=== PATIENT | male | born 1980 | race Caucasian/White ===

== ENCOUNTER 2023-11-11 07:37 | Outpatient (CLI) | payer OTHER, SELFPAY ==
--- NOTE | ~2023-11-11 | US_ITS ---
US right upper quadrant DATE: 11/11/2023 08:12 INDICATION: Chronic right-sided abdominal pain. Alcohol abuse, in remission. TECHNIQUE: Real-time imaging and Doppler analysis COMPARISON: 11/09/2014 Limited abdominal ultrasound examination FINDINGS: No hepatic surface nodularity is noted. No hepatic or pancreatic space occupying mass lesio n is detected. Normal hepatopedal portal venous flow direction. No gallstones or gallbladder wall thickening or abnormal pericholecystic fluid collection. Negative s onographic Mercedes's sign. The common bile duct measures 3 mm, normal. IMPRESSION: No significant abnormality Reviewed, dictated and finalized at Location [facility]. Reviewed, dictated and finalized at location B. IMPRESSION: No significant abnormality
== END 2023-11-11 07:38 ==
LOC: MICIMG 07:39
PROVIDERS: PCP Nurse Practitioner; Visit Provider Nurse Practitioner
DX: F10.11 Alcohol abuse, in remission (principal); R10.9 Unspecified abdominal pain; G89.29 Other chronic pain
CPT/HCPCS: 76705

== ENCOUNTER 2024-04-23 10:58 | Emergency (ER) | payer OTHER, SELFPAY ==
[2024-04-23 11:10] VITALS: BP 115/67; PULSE 115; RESP 18; TEMP 37.2; O2SAT 98
[2024-04-23 11:18] LABS: EDSTREPNEGPOS1 Negative (Negative)
--- NOTE | 2024-04-23 11:26 | ED.URI ---
HPI - URI/Sore Throat General Chief Complaint: Upper Respiratory Infection Stated Complaint: strep test Time Seen by Provider: 04/23/24 11:13 Source: patient and RN notes reviewed Mode of arrival: ambulatory Limitations: no limitations History of Present Illness HPI Narrative: Patient presents today with a 2 day history of sore throat, headache, productive cough, nasal congestion. Denies any fever shortness of breath. No known sick contacts. Currently rates his pain 5/10 and has been taking Sudafed and Tylenol with mild relief. Related Data Home Medications Medication Instructions Recorded Confirmed aripiprazole 2 mg tablet 2 mg PO DAILY 04/23/24 04/23/24 bupropion HCl 150 mg 24 hr tablet, 150 mg PO DAILY 04/23/24 04/23/24 extended release lamotrigine 100 mg tablet 100 mg PO DAILY 04/23/24 04/23/24 rosuvastatin 10 mg tablet 10 mg PO DAILY 04/23/24 04/23/24 sertraline 100 mg tablet 100 mg PO DAILY 04/23/24 04/23/24 Allergies Allergy/AdvReac Type Severity Reaction Status Date / Time Penicillins AdvReac Mild Hives Verified 04/23/24 11:21 Review of Systems Review of Systems: CONSTITUTIONAL: Denies body aches, fever, chills, or sweats. EYES: Denies visual changes, redness, or discharge. ENT: Denies rhinorrhea, or otalgia.+ congestion, sore throat CARDIOVASCULAR: Denies chest pain, palpitations, or edema. RESPIRATORY: Denies dyspnea.+ cough GASTROINTESTINAL: Denies abdominal pain, nausea, vomiting, or diarrhea. GENITOURINARY: Denies dysuria or hematuria. SKIN: Denies rash, itching, or wounds. MUSCULOSKELETAL: Denies back pain, joint pain, or myalgia. NEUROLOGIC: Denies numbness, tingling, or weakness.+ headache PSYCH: Denies depression or anxiety. [facility] Family History Family History Mother Family history of mental disorder Hypertension Father Hypertension Social History Social History Smoking status: Never smoker Second hand tobacco smoke exposure: No Comments At time of signature, I have reviewed and agree with nursing past medical, surgical, social and family history unless otherwise noted. Please see nursing chart for further information. There is no relevant family history pertinent to the presenting complaint Exam Narrative: GENERAL: Well-appearing, well-nourished, and in no acute distress. HEAD: Normocephalic, atraumatic. EYES: EOMI. No redness or drainage. Conjunctivae normal. ENT: Mucous membranes pink and moist. Nares congested with rhinorrhea. TMs normal bilaterally. Throat mildly erythematous without edema or exudate. Uvula midline. NECK: Normal AROM. Supple. No lymphadenopathy. CHEST: No respiratory distress. Clear to auscultation. HEART: Regular rate and rhythm. No murmur appreciated. EXTREMITIES: Normal range of motion. No edema. SKIN: Warm, dry, no rash. Capillary refill normal. Normal skin turgor. NEURO: No focal deficits. Alert and oriented x3. Gait steady. PSYCH: Normal affect. No signs of depression or anxiety. Course Course Level of Care: Express Care Visit Vital Signs Vital signs: Vital Signs Temperature 98.9 F 04/23/24 11:10 Pulse Rate 115 H 04/23/24 11:10 Respiratory Rate 18 04/23/24 11:10 Blood Pressure 115/67 04/23/24 11:10 Pulse Oximetry 98 04/23/24 11:10 Oxygen Delivery Room Air 04/23/24 11:10 Temperature 98.9 F 04/23/24 11:10 Pulse Rate 115 H 04/23/24 11:10 Respiratory Rate 18 04/23/24 11:10 Blood Pressure 115/67 04/23/24 11:10 Pulse Oximetry 98 04/23/24 11:10 Oxygen Delivery Room Air 04/23/24 11:10 Reviewed MDM - URI/Sore Throat MDM Narrative Medical decision making narrative: Rapid strep negative. Culture pending. Symptoms likely viral in etiology. Discussed [id number] medication use and duration of illness. No prescription medications indicated at this time. Anticipatory guidance given. Differential Diagnosis Differential diagnosis: Likely upper respiratory infection, viral infection, pharyngitis and other (Strep throat) Lab Data Attestation: I reviewed the patient's lab results. Labs: Lab Results 04/23/24 Range/Units 11:16 POC Grp A Strep Screen Negative (Negative) Critical Care Time Critical Care Time Critical Care Time: No Discharge Plan Discharge Clinical Impression: Upper respiratory infection Qualifiers: URI type: unspecified URI Qualified Code(s): J06.9 - Acute upper respiratory infection, unspecified Patient Disposition: Home, Self-Care Condition: Stable Instructions: Upper Respiratory Infection (DC) Additional Instructions: Your rapid strep swab was negative today at [facility]. You will be notified in a few days if the culture comes back positive for strep, and appropriate antibiotics will be called in for you at that time. Your symptoms are likely due to a viral illness, which is not treated with antibiotics. Viral symptoms can be present for up to 7-10 days. Take Tylenol or ibuprofen for fever or pain. Rest and stay hydrated. Follow up with your PCP in 7 days if symptoms are not improving. Go to the ER immediately if you have any difficulty breathing or swallowing. Prescriptions: No Action sertraline 100 mg tablet 100 mg PO DAILY lamotrigine 100 mg tablet 100 mg PO DAILY rosuvastatin 10 mg tablet 10 mg PO DAILY bupropion HCl 150 mg tablet extended release 24 hr 150 mg PO DAILY aripiprazole 2 mg tablet 2 mg PO DAILY Follow-up/Referrals: Afia,PARAS Weinstein [Primary Care Provider] - Time of Disposition: 11:29
== END 2024-04-23 11:29 | disposition home or self-care (01) ==
PROVIDERS: Emergency Provider Nurse Practitioner; PCP Nurse Practitioner
DX: J06.9 Acute upper respiratory infection, unspecified (principal); E78.00 Pure hypercholesterolemia, unspecified; F41.9 Anxiety disorder, unspecified; F32.A Depression, unspecified; Z86.16 Personal history of COVID-19
CPT/HCPCS: 87081; 87880; 99213; G0463

== ENCOUNTER 2024-10-24 21:10 | Observation (INO) | payer OTHER, SELFPAY ==
--- NOTE | ~2024-10-24 | CT_ITS ---
CLINICAL INDICATION: Right flank pain COMPARISON: None. TECHNIQUE: Multiple contiguous axial images of the abdomen and pelvis were performed without the admi nistration of intravenous contrast The dose-length product (DLP) was 244.82 mGy-cm. Automated exposure control and iterative reconstruction technique were employed. FINDINGS/OBSERVATIONS: Visualized lower thorax: The bilateral lung bases are clear. The heart is of normal size, without pericardial effusion. Small hiatal hernia is present. Liver: The liver demonstrates homogeneous attenuation and is not enlarged. Gallbladder and biliary system: The gallbladder is only minimally distended, and otherwise unremarkable. Pancreas: Limited evaluation of the pancreas secondary to the lack of intravenous contrast. Spleen: The spleen demonstrates homogeneous attenuation and is not enlarged. Kidneys: The bilateral kidneys are unremarkable, without hydronephrosis or renal calculi. Adrenal glands: Unremarkable. Gastrointestinal tract: Colonic diverticulosis without surrounding inflammatory change. Appendix: The retrocecal appendix is distended (up to 13 mm in caliber) with significant surrounding inflammato ry change. Findings consistent with acute appendicitis. Vasculature: Unremarkable. Lymph nodes: Limited evaluation without intravenous contrast Pelvic structures: The bladder is only minimally distended, and otherwise unremarkable. The prostate gland is not enlarged. Body wall and musculoskeletal: Small fat-containing umbilical hernia. No significant degenerative disease within the lower thoracic or lumbosacral spine. IMPRESSION: Acute retrocecal nonruptured appendicitis, as detailed above Reviewed, dictated and finalized at location A.
[2024-10-24 21:13] VITALS: BP 103/62; PULSE 68; RESP 18; O2SAT 99
--- OUTSIDE RECORDS SUMMARY | 2024-10-24 21:13 | XMS_ITS | Continuity of Care Document ---
Author Organization [facility] Address [address] [place] [address] [address] [place] [address] Phone Care Team Providers Care Chief Counsel Name Role Phone Tricia GARZA MD, Sherman Unavailable Unavailable Procedures Procedure Date OFFICE/OUTPATIENT VISIT, [facility] REMOVE EYELID LESION Advance Directives Directive Yes / No Effective Date File Name No Information Encounters Encounter Description Practice Location Reason(s) For Visit Diagnoses Date Provider Providers Copied on Encounter OFFICE/OUTPA TIENT VISIT, [facility], [address], [place], [place], [id number], tel:[phone] [facility] No Information 3 Tricia Whitaker. [address], [address], [place], [place], [address] , [place]. tel:[phone] Referring Provider: Sherman Clarke MD P, [address], [place], [address] . tel:[phone] Family History Family Member Type Diagnosis Age At Onset No Information Payers Payer name Insurance type Covered alliance party ID Authoriza tion(s) No Information Social History Type Description Quantity Date Captured Comments Sex Male Smoking Status No Information Chief Complaint And Reason For Visit No Information Reason For Referral Reason For Referral No Information History Of Present Illness Encounter Date Complaint History Of Prese nt Illness No Information Functional Status Date Functional Assessmen t No Information Instructions Date Instruction Additional Infor mation No Information Assessments Type Assessment Date No Information Patient Care Teams Name Effective Dates (start - stop) Status Members No Information
[2024-10-24 21:38] LABS: Basophils Percent Auto 0.2 % (0.2-1.2); Eosinophils Absolute Auto 0.1 K/mm3 (0-0.3); Eosinophils Percent Auto 0.9 % (0-4.4); Hematocrit 47.3 % (42.0-52.0); Hemoglobin 15.4 g/dL (14.0-18.0); Immature Granulocyte Absolute 0.05 K/mm3 (0.00-0.031); Immature Granulocyte Percent A 0.4 % (0-0.5); Lymphocytes Absolute Auto 1.76 K/mm3 (0.9-3.2); Lymphocytes Percent Auto 13.6 % (18.3-44.2); Mean Corpuscular HGB Conc 32.6 g/dl (32-36); Mean Corpuscular Hemoglobin 28.4 pg (26-34); Mean Corpuscular Volume 87.3 fl (80-100); Mean Platelet Volume 10.5 fl (7.4-10.4); Monocytes Absolute Auto 0.7 K/mm3 (0.1-0.6); Monocytes Percent Auto 5.7 % (2.6-8.5); Neutrophils Absolute Auto 10.2 K/mm3 (1.3-6.7); Neutrophils Percent Auto 79.2 % (45.5-73.1); Platelet Count Result 271 k/mm3 (150-375); Red Blood Count 5.42 M/mm3 (4.6-6.20); Red Cell Distribution Width 13.1 % (11.5-14.5); White Blood Count 12.9 K/mm3 (4.5-10.0)
[2024-10-24 22:05] LABS: Alanine Aminotransferase 30 U/L (6-50); Albumin Level 5.3 g/dL (3.5-5.1); Alkaline Phosphatase 59 U/L (38-126); Anion Gap 10 mmol/L (4-12); Aspartate Amino Transferase 30 U/L (17-59); Bilirubin,Total 0.7 mg/dL (0.2-1.3); Blood Urea Nitrogen 12 mg/dL (9-20); Calcium 9.6 mg/dL (8.4-10.2); Carbon Dioxide 31 mmol/L (22-30); Chloride 99 mmol/L (98-107); Estimated CRCL calculation 107 ml/min; Estimated Glomerular Filt Rate > 60; Glucose 125 mg/dL (65-110); Potassium 5.1 mmol/L (3.4-5.0); Sodium 140 mmol/L (137-145)
--- OUTSIDE RECORDS SUMMARY | 2024-10-24 22:18 | XMS_ITS | Clinical Summary ---
Author Organization [facility] Address [address] [place] [address] Care Team Providers Care Carpet Measurer Name Role Phone Yamel Oreilly NP Primary Care Provider [phone] Allergies Active Allergy Reactions Criticality Noted Date Comments Penicillins Unknown 01/19/2023 As a child Medications buPROPion XL (WELLBUTRIN XL) 150 MG 24 hr tablet Take 1 tablet (150 mg total) by mouth every morning. 4 Active busPIRone (BUSPAR) 7.5 MG tablet Take 1 tablet (7.5 mg total) by mouth daily. 3 Active hydrOXYzine (ATARAX) 25 MG tablet Take 1 tablet (25 mg total) by mouth as needed. Active sertraline (ZOLOFT) 100 MG tablet Take 1 tablet (100 mg total) by mouth daily. Active lamoTRIgine (LAMICTAL) 100 MG tablet Take 1 tablet (100 mg total) by mouth daily. 4 Active rosuvastatin (CRESTOR) 10 MG tabletIndications:M ixed hyperlipidemia Take 1 tablet (10 mg total) by mouth nightly at bedtime. 90 tablet 1 4 Active Active Problems Problem Noted Date Diagnosed Date Former cigar smoker 01/29/2024 Overview (01/29/2024): He is pleased to tell me that he quit smoking cigarettes. He is currently using a nicotine patch. Other hyperlipidemia 01/29/2024 Assessment & Plan (01/29/2024 9:03 AM CDT): Will recheck lipid panel. Encourage following a healthy well balance diet and staying active. Vitamin D deficiency 01/29/2024 Assessment & Plan (01/29/2024 9:05 AM CDT): Will recheck Vitamin D level. Is not on supplementation anymore. Alcohol abuse, in remission 11/02/2023 Overview (01/29/2024): Continues to remain alcohol free. Bipolar disorder, current ep isode mixed, mild ([facility]) 11/02/2023 Overview (01/29/2024): Follows with psychiatry for med management of his bipolar disorder and involved in therapy. Is doing very well. Denies any SI/HI. Assessment & Plan (01/29/2024 8:59 AM CDT): Continue to follow with psychiatry Resolved Problems Problem Noted Date Diagnosed Date Resolved Date Chronic right-sided low back pain without sciatica 11/02/2023 01/29/2024 Chronic right flank pain 11/02/202302/2024 Immunizations Immunization Administration Dates Next Due Influenza Adult (Generic) 03/14/2023,,04/26/2021,2018,04/14/2018,07/11/2017 PFIZER COVID-19 (ORIGINAL FORMULATION, PURPLE CAP) mRNA, LNP-S, PF, 30 MCG/0.3 ML DOSE 04/26/2021,09/13/2020,08/23/2020 Tdap (Adacel) 01/29/2024 Family History Medical History Relation Comments Diabetes Father Alcohol Abuse Maternal Uncle I m not going to list everyone. Half my family has some form of substanct abuse and depression. Hyperlipidemia Mother Relation Status Comments Father Maternal Uncle Mother Social History Tobacco Use Types Packs/Day Years Used Date Smoking Tobacco: Former Cigarettes Passive Smoke Exposure: Never Smokeless Tobacco: Never Comments:/Nicotine patch x 0 12/21/23 Alcohol Use Standard Drinks/Week Comments Not Currently 0 (1 standard drink = 0.6 oz pure alcohol) Hx alcohol abuse, clean for 6 weeks now, Would drink 12 pack beer daily x 3 years and 6 pack daily for 17 years PHQ-2 Answer Date Recorded Patient Health Questionnaire-2 Score 1 01/29/2024 Sex and Gender Information Value Date Recorded Sex Assigned at Not on file Legal Sex Male 9:11 AM CDT Gender Identity Not on file Sexual Orientation Not on file Last Filed Vital Signs Vital Sign Reading Time Taken Comments Blood Pressure 116/70 01/29/2024 8:16 AM CDT Pulse 73 01/29/2024 8:16 AM CDT Temperature 36.7 C (98.1 F) 01/29/2024 8:16 AM CDT Respiratory Rate 22 01/29/2024 8:16 AM CDT Oxygen Saturation 98% 01/29/2024 8:16 AM CDT Inhaled Oxygen Concentration - - Weight 76.2 kg (168 lb) 01/29/2024 8:16 AM CDT Height 180.3 cm (5' 11 ) 01/29/2024 8:16 AM CDT Body Mass Index 23.43 01/29/2024 8:16 AM CDT Plan of Treatment Upcoming Encounters Date Type Department Care Team (Late st Contact Info) Description 01/30/2025 8:20 AM CDT Office Visit [facility] - [place] [address] [place] [id number] Yamel Oreilly, VIDEO CONFERENCE SPECIALIST [address] [place] [address] Health Maintenance Due Date Last Done Comments Hepatitis B Vaccines (1 of 3 - 19+ 3-dose series) 10/03/1999 COVID-19 Vaccine (2023- season) 2024 03/14/2023, 03/15/2022, 04/26/2021, Additional history exists PHQ-2 (Physician [place]) 06/22/2024 01/29/2024 Annual Physical 01/28/2025 01/29/2024, 01/19/2023 DTaP, Tdap and Td Vaccines (2 - Td or Tdap) 01/28/2034 01/29/2024 Hepatitis C Completed 01/19/2023 HPV Vaccines Aged Out No longer eligi ble based on patient's age to complete this topic Meningococcal B Vaccine Aged Out No l onger eligible based on patient's age to complete this topic Meningococcal Vaccine Aged Out No aury minda eligible based on patient's age to complete this topic Pneumococcal Vaccine: Pediatrics (0 to 5 Years) and At-Risk Patients (6 to 49 Years) Aged Out No longer eligible based on patient's age to complete this topic RSV Immunizations Under 20 Months Aged Out No longer eligible based on patient's age to complete this topic Procedures Procedure Name Priority Date/Time Associated Diagnosis Comments HEPATITIS C ANTIBODY Routine 01/19/2023 10:05 AM CDT Need for hepatitis C screening test from Last 3 Months or Most Recently Relevant to Health Maintenance Results * HEPATITIS C ANTIBODY (01/19/2023 10:05 AM CDT) HEPATITIS C AB NON-REACTI VE NON-REACT SREEDHAR 01/19/2023 6:43 PM CDT [facility] Comment: ANTIBODIES TO HCV NOT DETECTED. DOES NOT EXCLUDE THE POSSIBILITY OF EXPOSURE TO HCV. 01/19/2023 10:0 5 AM CDT us Yamel Oreilly NP LABORATORY Final Res ult [facility] [address] [place] [address], [phone] from Last 3 Months or Most Recently Relevant to Health Maintenance Insurance [employer] Care Teams Carpet Measurer Relationship Specialty Start Date End Date Yamel Oreilly NP [address] [place] [address] PCP - General NURSE PRACTITIONER 12/08/22
--- OUTSIDE RECORDS SUMMARY | 2024-10-24 22:18 | XMS_ITS | Encounter Summary ---
Author Organization [facility] Address [address] [place] [address] Care Team Providers Care Pickle Cutter Name Role Phone Yamel Oreilly NP Primary Care Provider [phone] Encounter Details Date Type Department Care Team (Late Contact Info) Description 02/09/2024 Mizzen+Maint Message Enc [facility] Family Medicine [facility] [address] [phone] Yamel Oreilly NP [address] [address] follow up on [place] Social History Tobacco Use Types Packs/Day Years [...] on file Sexual Orientation Not on file documented as of this encounter Plan of Treatment Upcoming Encounters Date Type Department Care Team (Late Contact Info) Description 01/30/2025 8:20 AM CDT Office Visit [facility] [address] [address] Yamel Oreilly NP [address] [place] [address] documented as of this encounter Visit Diagnoses Not on filedocumented in this encounter Additional Health Concerns Assessment Noted Time PHQ-9 Depression Total Score: 19 023 9:09 AM CDT documented as of this encounter Care Teams Pickle Cutter Relationship Specialty Start Date End Date Yamel Oreilly NP [address] [place] [address] PCP - General NURSE PRACTITIONER 12/08/22 documented as of this encounter
--- OUTSIDE RECORDS SUMMARY | 2024-10-24 22:18 | XMS_ITS | Encounter Summary ---
Author Organization [facility] Address [address] [place] [address] Care Team Providers Care Smoke Control Supervisor Name Role Phone Yamel Oreilly NP Primary Care Provider [phone] Encounter Details Date Type Department Care Team (Late Contact Info) Description 11/11/2023 [employer]art Message Enc [facility] Family Medicine [facility] [address] [address] Yamel Oreilly NP [address] [address] Abdominal ultrasound results Social History Tobacco Use Types Packs/Day Years Used Date Smoking Tobacco: Every Day Passive Smoke Exposure: Never Smokeless Tobacco: Never Alcohol Use Standard Drinks/Week Comments Not Currently 0 (1 standard drink = 0.6 oz pure alcohol) Hx alcohol abuse, clean for 6 weeks now, Would drink 12 pack beer daily x 3 years and 6 pack daily for 17 years PHQ-2 Answer Date Recorded Patient Health Questionnaire-2 Score 6 01/19/2023 Sex and Gender Information Value Date Recorded Sex Assigned at Not on file Legal Sex Male 9:11 AM CDT Gender Identity Not on file Sexual Orientation Not on file documented as of this encounter Plan of Treatment Upcoming Encounters Date Type Department Care Team (Late Contact Info) Description 01/30/2025 8:20 AM CDT Office Visit [facility] [address] [phone] Yamel Oreilly NP [address] [place] [address] documented as of this encounter Visit Diagnoses Not on filedocumented in this encounter Additional Health Concerns Assessment Noted Time PHQ-9 Depression Total Score: 19 023 9:09 AM CDT documented as of this encounter Care Teams Smoke Control Supervisor Relationship Specialty Start Date End Date Yamel Oreilly NP [address] [place] [address] PCP - General NURSE PRACTITIONER 12/08/22 documented as of this encounter
--- OUTSIDE RECORDS SUMMARY | 2024-10-24 22:18 | XMS_ITS | Continuity of Care Document ---
Author Organization [facility] Address [address] [place] [address] [address] [place] [address] Phone Care Team Providers Care Lead Military Analyst Name Role Phone Tricia GARZA MD, Sherman Unavailable Unavailable Procedures Procedure Date OFFICE/OUTPATIENT VISIT, [facility] REMOVE EYELID LESION Advance Directives Directive Yes / No Effective Date File Name No Information Encounters Encounter Description Practice Location Reason(s) For Visit Diagnoses Date Provider Providers Copied on Encounter OFFICE/OUTPA TIENT VISIT, [facility], [address], [place], [place], [address], tel:[phone] [facility] No Information 3 Tricia Whitaker. [address] [facility], [place], [place], [address] , [place]. tel:[phone] Referring Provider: Sherman Clarke MD P, [address] [facility] [address] [facility] [facility] [address], [place], [address] . tel:[phone] Family History Family Member Type Diagnosis Age At Onset No Information Payers Payer name Insurance type Covered democrat ID Authoriza tion(s) No Information Social History [...]
--- NOTE | 2024-10-24 22:34 | ED_ITS ---
HPI - Abdominal Pain General Chief Complaint: Abdominal Pain <ZECHARIAH Kunz Last Filed: 10/25/24 01:12> Stated Complaint: a constipation blockage <ZECHARIAH Kunz Last Filed: 10/25/24 01:12> Time Seen by Provider: 10/24/24 22:01 <Alissa Sierra PA-C - Last Filed: 10/25/24 01:12> History of Present Illness HPI narrative: 44-year-old male with history of MDD, hyperlipidemia presents to the emergency department for right flank pain and diffuse abdominal pain for the past day. Patient states he thought he was constipated so took Gas-X, MiraLax and milk of magnesia without improvement in symptoms. He states the pain continued to progress so he came to the ED for further evaluation. He cannot recall the last time he urinated but notes he urinated last night and did not have any dysuria or hematuria. He endorses nausea, no vomiting. Denies fevers, history of kidney stones. His last bowel movement was earlier today and small in caliber. States he is passing little flatulence. No prior abdominal surgeries. <Alissa Sierra PA-C - Last Filed: 10/25/24 01:12> Related Data Home Medications: Home Medications ?Medication ?Instructions ?Recorded ?Confirmed ?Last Taken ?Type bupropion HCl 150 mg 24 hr tablet, 150 mg PO DAILY 04/23/24 10/25/24 Unknown History extended release lamotrigine 100 mg tablet 100 mg PO DAILY 04/23/24 10/25/24 Unknown History rosuvastatin 10 mg tablet 10 mg PO DAILY 04/23/24 10/25/24 Unknown History sertraline 100 mg tablet 150 mg PO DAILY 04/23/24 10/25/24 Unknown History hydroxyzine HCl 25 mg tablet 25 mg PO Q8H PRN anxiety 10/25/24 10/25/24 Unknown History melatonin 10 mg tablet 10 mg PO HS PRN sleep 10/25/24 10/25/24 Unknown History <Alissa Sierra PA-C - Last Filed: 10/25/24 01:12> Allergies/Adverse Reactions: Allergies Allergy/AdvReac Type Severity Reaction Status Date / Time Penicillins AdvReac Mild Hives Verified 10/24/24 21:12 <Alissa Sierra PA-C - Last Filed: 10/25/24 01:12> Review of Systems 2 Review of Systems: All systems reviewed & are unremarkable except as noted in HPI and below <Alissa Sierra PA-C - Last Filed: 10/25/24 01:12> PMFSH Family History Family History: Family History Mother Family history of mental disorder Hypertension Father Hypertension <Alissa Sierra PA-C - Last Filed: 10/25/24 01:12> Social History Social History: Social History Smoking status: Former smoker Second hand tobacco smoke exposure: No Alcohol intake: never Substance use: never Do You Feel Safe in your Home?: Yes Lack of Transportation: No Lack of Food: Never True Current Housing: I Have Housing Concerned About Future Housing: No Difficulty Paying Gas/Electric Bills: No Difficulty Paying for Meds: No Currently Unemployed: No Education: Bachelor's Degree Difficulty w/ Childcare or Family Care: No Spiritual care concerns: No <Alissa Sierra PA-C - Last Filed: 10/25/24 01:12> Exam 2 Narrative: GENERAL: Appears uncomfortable, otherwise NAD HEAD: Normocephalic, atraumatic. EYES:EOMI. ENT: Nares clear, no rhinorrhea or epistaxis. Mucous membranes moist. NECK: Supple. CHEST: Clear to auscultation. No respiratory distress. HEART: Regular rate and rhythm. No murmur heard. Normal peripheral pulses. ABDOMEN: Normoactive bowel sounds. Abdomen soft diffuse tenderness. No rebound, guarding or rigidity. Right CVA tenderness EXTREMITIES: Normal range of motion. No edema. SKIN: Warm, dry, no rash. NEURO: No focal deficits. Alert and oriented x3 <Alissa Sierra PA-C - Last Filed: 10/25/24 01:12> Course [employer]/PA Physician Supervision I agree with midlevel documentation; I performed the medical decision making component of this evaluation. <Jada Soriano MD - Last Filed: 10/25/24 02:58> Vital Signs Vital signs: Vital Signs Pulse Rate 68 10/24/24 21:13 Respiratory Rate 18 10/24/24 21:13 Blood Pressure 103/62 10/24/24 21:13 Pulse Oximetry 99 10/24/24 21:13 Temperature 98.1 F 10/25/24 02:36 Pulse Rate 81 10/25/24 02:36 Respiratory Rate 20 10/25/24 02:36 Blood Pressure 118/63 10/25/24 02:36 Pulse Oximetry 95 10/25/24 02:36 Oxygen Delivery Room Air 10/25/24 02:43 <Alissa Sierra PA-C - Last Filed: 10/25/24 01:12> Vital Signs Pulse Rate 68 10/24/24 21:13 Respiratory Rate 18 10/24/24 21:13 Blood Pressure 103/62 10/24/24 21:13 Pulse Oximetry 99 10/24/24 21:13 Temperature 98.1 F 10/25/24 02:36 Pulse Rate 81 10/25/24 02:36 Respiratory Rate 20 10/25/24 02:36 Blood Pressure 118/63 10/25/24 02:36 Pulse Oximetry 95 10/25/24 02:36 Oxygen Delivery Room Air 10/25/24 02:43 <Jada Soriano MD - Last Filed: 10/25/24 02:58> MDM - Abdominal Pain MDM Narrative Medical decision making narrative: 44-year-old male presents emergency department for diffuse abdominal pain and right flank pain for 1 day. Reporting associated nausea. Vitals stable. Patient is afebrile and nontoxic appearing. Exam is significant for the above. CBC with leukocytosis of 12.9. Chemistries with mild hyperkalemia 5.1, likely dehydration. Fluids provided. Renal function normal. Lipase within normal limits. CT abdomen pelvis shows acute retrocecal nonruptured appendicitis. Patient family at bedside updated on results. Patient received IV fluids, Zofran, morphine and Pepcid with improvement. Patient was able to urinate in the ED after IV fluids. Discussed with Dr. Kennedy who agrees to admission, advises admit under his service. Agrees to Rocephin and Flagyl given PCN allergy. <Alissa Sierra PA-C - Last Filed: 10/25/24 01:12> Lab Data Result diagrams: 10/24/24 21:30 10/24/24 21:30 <Alissa Sierra PA-C - Last Filed: 10/25/24 01:12> Labs: Lab Results 10/24/24 10/25/24 Range/Units 21:30 00:54 WBC 12.9 H (4.5-10.0) K/mm3 RBC 5.42 (4.6-6.20) M/mm3 Hgb 15.4 (14.0-18.0) g/dL Hct 47.3 (42.0-52.0) % MCV 87.3 (80-100) fl MCH 28.4 (26-34) pg MCHC 32.6 (32-36) g/dl RDW 13.1 (11.5-14.5) % Plt Count 271 (150-375) k/mm3 MPV 10.5 H (7.4-10.4) fl Immature Gran % (Auto) 0.4 (0-0.5) % Neut % (Auto) 79.2 H (45.5-73.1) % Lymph % (Auto) 13.6 L (18.3-44.2) % [place] % (Auto) 5.7 (2.6-8.5) % Eos % (Auto) 0.9 (0-4.4) % Baso % (Auto) 0.2 (0.2-1.2) % Lymph # (Auto) 1.76 (0.9-3.2) K/mm3 [place] # (Auto) 0.7 H (0.1-0.6) K/mm3 Eos # (Auto) 0.1 (0-0.3) K/mm3 Baso # (Auto) 0.0 (0.0-0.1) K/mm3 Abs Immat Gran (auto) 0.05 H (0.00-0.031) K/mm3 Absolute Neuts (auto) 10.2 H (1.3-6.7) K/mm3 Absolute Nucleated RBC 0.000 (0.0-0.012) K/mm3 Nucleated RBC % 0.0 (0.0-0.2) % Sodium 140 (137-145) mmol/L Potassium 5.1 H (3.4-5.0) mmol/L Chloride 99 (98-107) mmol/L Carbon Dioxide 31 H (22-30) mmol/L Anion Gap 10 (4-12) mmol/L BUN 12 (9-20) mg/dL Creatinine 0.84 (0.7-1.3) mg/dL Estim Creat Clear Calc 107 ml/min Estimated GFR > 60 (59 - ) Glucose 125 H (65-110) mg/dL Calcium 9.6 (8.4-10.2) mg/dL Total Bilirubin 0.7 (0.2-1.3) mg/dL AST 30 (17-59) U/L ALT 30 (6-50) U/L Alkaline Phosphatase 59 (38-126) U/L Total Protein 9.0 H (6.3-8.2) g/dL Albumin 5.3 H (3.5-5.1) g/dL Lipase 73 (23-300) U/L Urine Color Yellow (Yellow) Urine Appearance Clear (Clear) Urine pH >=9.0 H (5.0-9.0) Ur Specific [place] 1.020 (1.001-1.035) Urine Protein 1+ H (Negative) mg/dL Urine Glucose (UA) Negative (Negative) mg/dL Urine Ketones 1+ H (Negative) mg/dL Ur Blood (Man) Negative (Negative) Urine Nitrate Negative (Negative) Urine Bilirubin Negative (Negative) Urine Urobilinogen 0.2 (<2.0) mg/dL Leukocyte Esterase Rfl Negative (Negative) FRANCES/UL Urine RBC 0-2 (0-2) /hpf Urine WBC 0-5 (0-3) /hpf Ur Squamous Epith Cells None seen (Few) /hpf Urine Bacteria None seen /hpf Urine Casts 0-2 <Alissa Sierra PA-C - Last Filed: 10/25/24 01:12> Lab Results 10/24/24 10/25/24 Range/Units 21:30 00:54 WBC 12.9 H (4.5-10.0) K/mm3 RBC 5.42 (4.6-6.20) M/mm3 Hgb 15.4 (14.0-18.0) g/dL Hct 47.3 (42.0-52.0) % MCV 87.3 (80-100) fl MCH 28.4 (26-34) pg MCHC 32.6 (32-36) g/dl RDW 13.1 (11.5-14.5) % Plt Count 271 (150-375) k/mm3 MPV 10.5 H (7.4-10.4) fl Immature Gran % (Auto) 0.4 (0-0.5) % Neut % (Auto) 79.2 H (45.5-73.1) % Lymph % (Auto) 13.6 L (18.3-44.2) % [place] % (Auto) 5.7 (2.6-8.5) % Eos % (Auto) 0.9 (0-4.4) % Baso % (Auto) 0.2 (0.2-1.2) % Lymph # (Auto) 1.76 (0.9-3.2) K/mm3 [place] # (Auto) 0.7 H (0.1-0.6) K/mm3 Eos # (Auto) 0.1 (0-0.3) K/mm3 Baso # (Auto) 0.0 (0.0-0.1) K/mm3 Abs Immat Gran (auto) 0.05 H (0.00-0.031) K/mm3 Absolute Neuts (auto) 10.2 H (1.3-6.7) K/mm3 Absolute Nucleated RBC 0.000 (0.0-0.012) K/mm3 Nucleated RBC % 0.0 (0.0-0.2) % Sodium 140 (137-145) mmol/L Potassium 5.1 H (3.4-5.0) mmol/L Chloride 99 (98-107) mmol/L Carbon Dioxide 31 H (22-30) mmol/L Anion Gap 10 (4-12) mmol/L BUN 12 (9-20) mg/dL Creatinine 0.84 (0.7-1.3) mg/dL Estim Creat Clear Calc 107 ml/min Estimated GFR > 60 (59 - ) Glucose 125 H (65-110) mg/dL Calcium 9.6 (8.4-10.2) mg/dL Total Bilirubin 0.7 (0.2-1.3) mg/dL AST 30 (17-59) U/L ALT 30 (6-50) U/L Alkaline Phosphatase 59 (38-126) U/L Total Protein 9.0 H (6.3-8.2) g/dL Albumin 5.3 H (3.5-5.1) g/dL Lipase 73 (23-300) U/L Urine Color Yellow (Yellow) Urine Appearance Clear (Clear) Urine pH >=9.0 H (5.0-9.0) Ur Specific [place] 1.020 (1.001-1.035) Urine Protein 1+ H (Negative) mg/dL Urine Glucose (UA) Negative (Negative) mg/dL Urine Ketones 1+ H (Negative) mg/dL Ur Blood (Man) Negative (Negative) Urine Nitrate Negative (Negative) Urine Bilirubin Negative (Negative) Urine Urobilinogen 0.2 (<2.0) mg/dL Leukocyte Esterase Rfl Negative (Negative) FRANCES/UL Urine RBC 0-2 (0-2) /hpf Urine WBC 0-5 (0-3) /hpf Ur Squamous Epith Cells None seen (Few) /hpf Urine Bacteria None seen /hpf Urine Casts 0-2 <Jada Soriano MD - Last Filed: 10/25/24 02:58> Imaging Data Radiologist's impression: ITS Impressions Abdomen/Pelvis CT 10/24/24 23:53 IMPRESSION: Acute retrocecal nonruptured appendicitis, as detailed above <ZECHARIAH Kunz Last Filed: 10/25/24 01:12> ITS Impressions Abdomen/Pelvis CT 10/24/24 23:53 IMPRESSION: Acute retrocecal nonruptured appendicitis, as detailed above <Jada Soriano MD - Last Filed: 10/25/24 02:58> Discharge Plan Discharge Clinical Impression: Acute appendicitis Qualifiers: Acute appendicitis type: with generalized peritonitis Appendicitis gangrene presence: without gangrene Appendicitis perforation presence: without perforation Appendicitis abscess presence: without abscess Qualified Code(s): K 35.200 - Acute appendicitis with generalized peritonitis, without perforation or abscess <ZECHARIAH Kunz Last Filed: 10/25/24 01:12> Patient Disposition: Still a Patient <ZECHARIAH Kunz Last Filed: 10/25/24 01:12> Condition: Stable <ZECHARIAH Kunz Last Filed: 10/25/24 01:12>
[2024-10-24 22:39] VITALS: TEMP 36.6
[2024-10-24 22:49] LABS: Lipase 73 U/L (23-300)
[2024-10-25] VITALS (14 sets, daily range): BP systolic 97–118; BP diastolic 52–72; PULSE 81–101; RESP 12–20; TEMP 36.2–37.5; O2SAT 91–98; BMI 23.3
--- NOTE | 2024-10-25 00:31 | PC.NURSE ---
pt can not provide a urine at this time.
[2024-10-25] MEDS: SODIUM CHLORIDE 0.9% IV 1,000 ML 999 ML IV CONT (00:39)
[2024-10-25] MEDS: ONDANSETRON INJ 4 MG/2 ML VIAL IV PUSH ×3 (00:40→06:43)
[2024-10-25] MEDS: MORPHINE SULFATE (*CRX) 4 MG/ML INJ IV PUSH ×5 (00:40→22:25)
[2024-10-25] MEDS: FAMOTIDINE 20 MG/2 ML VIAL IV PUSH (00:40)
[2024-10-25] MEDS: metroNIDAZOLE 500 MG/ISO 100ML 500 MG/100 ML BAG 100 MG IVPB ×3 (01:00→15:02)
[2024-10-25 01:43] LABS: Add Urine Microscopic? YES; Appearance Urine Clear (Clear); Bacteria Urine None Seen /hpf; Bilirubin Urine Negative (Negative); Blood Urine Negative (Negative); Color Urine Yellow (Yellow); Glucose Urine UA Negative (Negative); Ketones Urine 1+ mg/dL (Negative); Leukocyte Esterase Ur Negative LEU/UL (Negative); Nitrate Urine Negative (Negative); Non Pathogenic Casts 0-2; Protein Urine 1+ mg/dL (Negative); RBC Urine 0-2 /hpf (0-2); Squamous Epithelial Cell Urine None Seen /hpf (Few); Urobilinogen Urine 0.2 mg/dL (<2.0); WBC Urine 0-5 /hpf (0-3); pH Urine >=9.0 (5.0-9.0)
[2024-10-25] MEDS: SODIUM CHLORIDE 0.9% IV 1,000 ML 125 ML IV CONT ×2 (01:57→11:10)
--- NOTE | 2024-10-25 02:25 | ADMGEN ---
This patient, Jose Rafael Canela, was admitted to Medical Room 243-. Patient/family oriented to hospital policies and general routines including ID bracelet, bed and alarms, visiting hours, pain management, procedures, bathroom and other care routines, personal items, smoking policy, room service/diet, and visiting hours. Information on how to activate the Rapid Response Team has been discussed. Patient/Family are encouraged to report perceived risks to care and to ask questions if they do not understand what they are told or what they should do.
--- NOTE | 2024-10-25 12:14 | PM.IMHP ---
H&P: [facility] History of Present Illness Date/Time: 10/25/24 12:14 Chief Complaint: Right lower quadrant pain Narrative: This is a 44-year-old man with PMH of depression, hyperlipidemia, who added to the ED last night with complaints of right lower quadrant abdominal pain x 2 days. He initially noticed bloating and generalized abdominal discomfort Thursday evening. He initially thought he was constipated and attempted taking multiple [id number]-bapiatu laxatives. He had multiple bowel movements without relief. By the following day, he developed localize pain to the right lower quadrant and right flank. He also reports some lower back pain bilaterally. By last night, he developed generalized malaise, nausea, and dry heaving. Therefore, he came into the ED for evaluation. [place] [address] scan of the abdomen and pelvis demonstrated acute retrocecal nonruptured appendicitis. He was admitted and started on ceftriaxone and metronidazole IV. He is now seen on the medical floor. 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 Family History Family History Mother Family history of mental disorder Hypertension Father Hypertension Social History Social History Smoking status: Former smoker Second hand tobacco smoke exposure: No Alcohol intake: never Substance use: never Do You Feel Safe in your Home?: Yes Lack of Transportation: No Lack of Food: Never True Current Housing: I Have Housing Concerned About Future Housing: No Difficulty Paying Gas/Electric Bills: No Difficulty Paying for Meds: No Currently Unemployed: No Education: Bachelor's Degree Difficulty w/ Childcare or Family Care: No Spiritual care concerns: No Meds Home Medications and Allergies Home Medications ?Medication ?Instructions ?Recorded ?Confirmed ?Type bupropion HCl 150 mg 24 hr tablet, 150 mg PO DAILY 04/23/24 10/25/24 History extended release lamotrigine 100 mg tablet 100 mg PO DAILY 04/23/24 10/25/24 History rosuvastatin 10 mg tablet 10 mg PO DAILY 04/23/24 10/25/24 History sertraline 100 mg tablet 150 mg PO DAILY 04/23/24 10/25/24 History hydroxyzine HCl 25 mg tablet 25 mg PO Q8H PRN anxiety 10/25/24 10/25/24 History melatonin 10 mg tablet 10 mg PO HS PRN sleep 10/25/24 10/25/24 History Allergies Allergy/AdvReac Type Severity Reaction Status Date / Time Penicillins AdvReac Mild Hives Verified 10/24/24 21:12 Vital Signs Vital Signs - 24 hr 10/24/24 21:13 10/24/24 22:39 10/25/24 00:56 Temperature 97.8 F 98.1 F Pulse Rate 68 Respiratory Rate 18 Blood Pressure 103/62 Pulse Oximetry 99 Oxygen Delivery 10/25/24 02:36 10/25/24 02:43 10/25/24 05:59 Temperature 98.1 F 98.3 F Pulse Rate 81 87 Respiratory Rate 20 20 Blood Pressure 118/63 107/52 L Pulse Oximetry 95 94 Oxygen Delivery Room Air 10/25/24 08:00 Temperature Pulse Rate Respiratory Rate Blood Pressure Pulse Oximetry Oxygen Delivery Room Air Exam Const: General: comfortable and no acute distress Nutritional Appearance: average body habitus Orientation/consciousness: patient oriented x3 HENMT: Head: normocephalic and atraumatic Ears: hearing grossly normal bilaterally Mouth: Yes moist mucous membranes Eyes: General: appearance normal, both eyes and all related structures Pupils: Equal, round and reactive pupils present Neck: Neck: normal visual inspection and full ROM Resp: Effort & Inspection: no respiratory distress Auscultation: clear to auscultation bilaterally Cardio: Rate: regular rate Rhythm: regular rhythm Peripheral pulses: Peripheral pulses 2+ throughout GI: Inspection: non-distended and no scars GI Palp: Yes Soft to palpation, Yes Tenderness to palpation present (GI) (RLQ), No Guarding due to palpation present (GI), Yes No hepatosplenomegaly present, No Hernia present and No Rebound tenderness present Percussion: Yes normal to percussion Auscultation: normal bowel sounds Rectal Exam: deferred Skin: General skin exam: normal color Neuro: General: moves all extremities and no focal motor deficits Speech: normal speech Motor exam (neuro): 5/5 motor strength present throughout Extrem: General: normal to inspection and no edema Psych: Mental Status: mental status grossly normal Attitude: cooperative Insight: Good insight present (Psych) Judgement: Good judgement present (Psych) H&P: Results Labs Labs: Short CBC 10/24/24 Range/Units 21:30 WBC 12.9 H (4.5-10.0) K/mm3 Hgb 15.4 (14.0-18.0) g/dL Hct 47.3 (42.0-52.0) % Plt Count 271 (150-375) k/mm3 BMP 10/24/24 21:30 Sodium 140 Potassium 5.1 H Chloride 99 Carbon Dioxide 31 H BUN 12 Creatinine 0.84 Glucose 125 H Calcium 9.6 Liver Function 10/24/24 Range/Units 21:30 Total Bilirubin 0.7 (0.2-1.3) mg/dL AST 30 (17-59) U/L ALT 30 (6-50) U/L Alkaline Phosphatase 59 (38-126) U/L Albumin 5.3 H (3.5-5.1) g/dL Urine 10/25/24 Range/Units 00:54 Urine Color Yellow (Yellow) Urine Appearance Clear (Clear) Urine pH >=9.0 H (5.0-9.0) Ur Specific [place] 1.020 (1.001-1.035) Urine Protein 1+ H (Negative) mg/dL Urine Glucose (UA) Negative (Negative) mg/dL Imaging CT scan - abdomen: Radiologist's impression: ITS Impressions Abdomen/Pelvis CT 10/24/24 23:53 IMPRESSION: Acute retrocecal nonruptured appendicitis, as detailed above Assessment and Plan Assessment and plan (1) Acute appendicitis: Qualifiers: Acute appendicitis type: with generalized peritonitis Appendicitis abscess presence: without abscess Appendicitis gangrene presence: without gangrene Appendicitis perforation presence: without perforation Qualified Code(s): K35.200 - Acute appendicitis with generalized peritonitis, without perforation or abscess Code(s): K35.80 - Unspecified acute appendicitis Status: Acute Assessment and Plan: CT evidence of acute uncomplicated appendicitis, which was discussed with the patient. We discussed both nonoperative treatment versus proceeding with surgery. We discussed the details of a laparoscopic appendectomy, possible open, under general anesthesia that would be done by Dr. Kennedy. Description of the procedure, risks, benefits, alternatives, and expected recovery were discussed. He wishes to proceed with surgery. Continue IV antibiotics, NPO, and IV fluids. Proceed to the OR for urgent appendectomy today. Plan I have discussed the patient's case and plan of care with Dr. Kennedy.
[2024-10-25] MEDS: KETOROLAC 30 MG/ML VIAL (*BKC) IV PUSH ×2 (12:20→21:18)
[2024-10-25] MEDS: KETOROLAC 15 MG/ML VIAL (*BKC) IV PUSH (14:40)
[2024-10-25] MEDS: ACETAMINOPHEN 500 MG TABLET 1000 MG PO (14:40)
--- NOTE | 2024-10-25 14:40 | WPDHPUPDATE1 ---
History and Physical Update Update Date/Time: 10/25/24 14:40 History and Physical has been reviewed, including an updated exam of the patient. There are NO changes in the patient's condition. Risks, benefits, and alternatives have been discussed and questions answered. Patient agrees to proceed with procedure.
--- NOTE | 2024-10-25 14:50 | WPDANESEPPF ---
Anes - Initial Pre Proc Eval Procedure: Operation Date: 10/25/24 15:00 Proposed Procedures p Laparoscopic Appendectomy - Cinda Kennedy MD Date/Time: 10/25/24 14:50 Surgeon: Cinda Kennedy MD Pre Op Diagnosis: Acute appendicitis Patient Data Age: 44 Gender: M Height: 1.83 m Weight: 78 kg Last Vital Signs Temp 37.5 C 10/25/24 14:30 Pulse 94 10/25/24 14:30 Resp 16 10/25/24 14:30 BP 108/61 10/25/24 14:30 Pulse Ox 98 10/25/24 14:30 O2 Del Method Room Air 10/25/24 14:30 Allergies Allergy/AdvReac Type Severity Reaction Status Date / Time Penicillins AdvReac Mild Hives Verified 10/25/24 14:45 Home Medications ?Medication ?Instructions ?Recorded ?Confirmed ?Type bupropion HCl 150 mg 24 hr tablet, 150 mg PO DAILY 04/23/24 10/25/24 History extended release lamotrigine 100 mg tablet 100 mg PO DAILY 04/23/24 10/25/24 History rosuvastatin 10 mg tablet 10 mg PO DAILY 04/23/24 10/25/24 History sertraline 100 mg tablet 150 mg PO DAILY 04/23/24 10/25/24 History hydroxyzine HCl 25 mg tablet 25 mg PO Q8H PRN anxiety 10/25/24 10/25/24 History melatonin 10 mg tablet 10 mg PO HS PRN sleep 10/25/24 10/25/24 History Laboratory Tests 10/24/24 10/25/24 21:30 00:54 WBC 12.9 H K/mm3 (4.5-10.0) RBC 5.42 M/mm3 (4.6-6.20) Hgb 15.4 g/dL (14.0-18.0) Hct 47.3 % (42.0-52.0) MCV 87.3 fl (80-100) MCH 28.4 pg (26-34) MCHC 32.6 g/dl (32-36) RDW 13.1 % (11.5-14.5) Plt Count 271 k/mm3 (150-375) MPV 10.5 H fl (7.4-10.4) Immature Gran % (Auto) 0.4 % (0-0.5) Neut % (Auto) 79.2 H % (45.5-73.1) Lymph % (Auto) 13.6 L % (18.3-44.2) [place] % (Auto) 5.7 % (2.6-8.5) Eos % (Auto) 0.9 % (0-4.4) Baso % (Auto) 0.2 % (0.2-1.2) Lymph # (Auto) 1.76 K/mm3 (0.9-3.2) [place] # (Auto) 0.7 H K/mm3 (0.1-0.6) Eos # (Auto) 0.1 K/mm3 (0-0.3) Baso # (Auto) 0.0 K/mm3 (0.0-0.1) Abs Immat Gran (auto) 0.05 H K/mm3 (0.00-0.031) Absolute Neuts (auto) 10.2 H K/mm3 (1.3-6.7) Absolute Nucleated RBC 0.000 K/mm3 (0.0-0.012) Nucleated RBC % 0.0 % (0.0-0.2) Sodium 140 mmol/L (137-145) Potassium 5.1 H mmol/L (3.4-5.0) Chloride 99 mmol/L (98-107) Carbon Dioxide 31 H mmol/L (22-30) Anion Gap 10 mmol/L (4-12) BUN 12 mg/dL (9-20) Creatinine 0.84 mg/dL (0.7-1.3) Estim Creat Clear Calc 107 ml/min Estimated GFR > 60 (59 - ) Glucose 125 H mg/dL (65-110) Calcium 9.6 mg/dL (8.4-10.2) Total Bilirubin 0.7 mg/dL (0.2-1.3) AST 30 U/L (17-59) ALT 30 U/L (6-50) Alkaline Phosphatase 59 U/L (38-126) Total Protein 9.0 H g/dL (6.3-8.2) Albumin 5.3 H g/dL (3.5-5.1) Lipase 73 U/L (23-300) Urine Color Yellow (Yellow) Urine Appearance Clear (Clear) Urine pH >=9.0 H (5.0-9.0) Ur Specific [place] 1.020 (1.001-1.035) Urine Protein 1+ H mg/dL (Negative) Urine Glucose (UA) Negative mg/dL (Negative) Urine Ketones 1+ H mg/dL (Negative) Ur Blood (Man) Negative (Negative) Urine Nitrate Negative (Negative) Urine Bilirubin Negative (Negative) Urine Urobilinogen 0.2 mg/dL (<2.0) Leukocyte Esterase Rfl Negative FRANCES/UL (Negative) Urine RBC 0-2 /hpf (0-2) Urine WBC 0-5 /hpf (0-3) Ur Squamous Epith Cells None seen /hpf (Few) Urine Bacteria None seen /hpf Urine Casts 0-2 Patient hx anesthesia problems: none Family hx anesthesia problems: none Results Review: All pre-operative results and documents have been reviewed as part of the pre-operative evaluation. 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 Family History Family History Mother Family history of mental disorder Hypertension Father Hypertension Social History Social History Smoking status: Former smoker Second hand tobacco smoke exposure: No Alcohol intake: never Substance use: never Do You Feel Safe in your Home?: Yes Lack of Transportation: No Lack of Food: Never True Current Housing: I Have Housing Concerned About Future Housing: No Difficulty Paying Gas/Electric Bills: No Difficulty Paying for Meds: No Currently Unemployed: No Education: Bachelor's Degree Difficulty w/ Childcare or Family Care: No Spiritual care concerns: No Anes - Eval Final PreProcedure Day of Procedure 10/25/24 14:50 Patient weight: normal Heart: regular rate and rhythm Lungs: clear to auscultation Airway: Mallampati scale class II Neurological: alert and oriented Last oral intake: >/= 8 hours ASA classification: II Emergent: yes Anesthetic plan: proceed Anesthesia type and monitoring: general ETT and standard monitoring Results Review: All pre-operative results and documents have been reviewed as part of the pre-operative evaluation. Informed Consent: The patient's anesthetic plan and its attendant risks and benefits were discussed with the patient/family/POA. Questions were solicited and answers provided to the satisfaction of the patient/family/POA.
[2024-10-25] MEDS: BUPIVACAINE/EPINEPHRINE 0.5% 50 ML VIAL 30 ML INFILTRATE (15:23)
[2024-10-25] MEDS: LACTATED RINGERS 1,000 ML 30 ML IV CONT ×2 (16:31→16:56)
--- NOTE | 2024-10-25 16:49 | P.OP_ITS ---
Procedure Note - Detailed Date of Procedure 10/25/24 Pre-op Diagnosis Acute appendicitis Post-op Diagnosis Same Procedure Performed laparoscopic appendectomy, extensive lysis of adhesions, kocherization of the right colon Surgeon Cinda Kennedy MD Anesthesia General Indications 44-year-old male presenting to the emergency department with severe right lower quadrant abdominal pain. Workup in the emergency department including CT imaging was significant for acute appendicitis. Findings acute appendicitis no evidence of perforation , appendix in the retrocecal position with extensive adhesions of the colon and terminal ileum Description of Procedure The patient was taken to the operating room and placed in the supine position. After adequate induction of general anesthesia, the patient was prepped and d raped in the normal sterile fashion. A time-out was then done to verify the patient's identity, as well as the procedure being performed. I began by making a 5 mm incision in the infraumbilical region, through this a Veress needle was placed in the peritoneal cavity. CO2 gas was then insufflated and after adequate pneumoperitoneum was achieved the Veress needle was removed. Then placed a 5 mm Optiview trocar under direct visualization into the peritoneal cavity. I then insufflated through this trocar site and the endoscope was placed into the trocar. Under direct visualization, placed 2 further 5 mm suprapubic port as well as an additional 12 mm port in the left lower abdomen. At this point identified the cecum, I retracted the cecum both medially and superiorly allowing me to expose the appendix. Unfortunately, the appendix was noted to be in the retrocecal position. There was extensive adhesions of the cecum and terminal ileum to the right lateral sidewall. These were taken down both bluntly and sharply with the Bovie cautery. I was still unable to identify the appendix and I did have to Kocherize the right colon to allow visualization of the appendix. Also an additional 5 mm port was added in the right upper midline to assist with retraction. The appendix was noted to be very dilated and inflamed. This lysis of adhesions and mobilization of the right colon took approximately 45 minutes. I then was able to locate the base of the appendix with the cecum. I created a window with the [place] dissector between the appendix itself and the mesoappendix. I then transected the mesoappendix with a white vascular staple load. The Endo-MOR was then reloaded with a blue staple load and I transected the base of the appendix. Once the specimen was completely detached, an endo-pouch was placed into the 12 mm port site and the specimen was removed through the endo-pouch. The appendiceal specimen will be sent to pathology for further review. I then copiously irrigated the right lower quadrant. Hemostasis was noted at both staple lines no other pathology was seen in this area. I then moved the camera to the suprapubic port to check our its port of entry. No iatrogenic injury or other pathology was noted in the upper abdomen. I then closed the 12 mm port site with a [place] code and 0 Vicryl suture under direct visualization. At this point, the abdomen was desufflated and all ports were removed. All port sites were closed with 4 Monocryl subcuticular suture. Dermabond was placed on all wounds. The patient tolerated the procedure well and was extubated in the operating room postop. He will be sent to the recovery room in stable condition. Estimated Blood Loss 20 Urine Output 350 Drains No Packing No Pathology Yes Complications No immediate complications Condition Stable Disposition PACU [facility] Billing Surgery - Charge Forward: Surgery Billing
[2024-10-26] MEDS: MORPHINE SULFATE (*CRX) 4 MG/ML INJ IV PUSH (03:39)
[2024-10-26 05:04] VITALS: BP 107/61; PULSE 82; RESP 12; TEMP 38.1; O2SAT 95
[2024-10-26 05:32] VITALS: TEMP 38.1
[2024-10-26] MEDS: ACETAMINOPHEN 325 MG TABLET 650 MG PO (05:32)
[2024-10-26 06:41] VITALS: TEMP 36.9
--- NOTE | 2024-10-26 08:21 | PC.NURSE ---
pt will be discharging this morning and wishes to take all regular home meds at home today
[2024-10-26 09:23] LABS: Basophils Percent Auto 0.2 % (0.2-1.2); Eosinophils Absolute Auto 0.1 K/mm3 (0-0.3); Eosinophils Percent Auto 0.5 % (0-4.4); Hematocrit 36.2 % (42.0-52.0); Hemoglobin 11.3 g/dL (14.0-18.0); Immature Granulocyte Absolute 0.03 K/mm3 (0.00-0.031); Immature Granulocyte Percent A 0.3 % (0-0.5); Lymphocytes Absolute Auto 1.99 K/mm3 (0.9-3.2); Mean Corpuscular HGB Conc 31.2 g/dl (32-36); Mean Corpuscular Hemoglobin 28.3 pg (26-34); Mean Corpuscular Volume 90.5 fl (80-100); Mean Platelet Volume 10.2 fl (7.4-10.4); Monocytes Absolute Auto 0.7 K/mm3 (0.1-0.6); Monocytes Percent Auto 6.2 % (2.6-8.5); Neutrophils Absolute Auto 8.3 K/mm3 (1.3-6.7); Neutrophils Percent Auto 74.8 % (45.5-73.1); Platelet Count Result 193 k/mm3 (150-375); Red Cell Distribution Width 13.2 % (11.5-14.5); White Blood Count 11.1 K/mm3 (4.5-10.0)
[2024-10-26 09:35] LABS: Anion Gap 5 mmol/L (4-12); Blood Urea Nitrogen 13 mg/dL (9-20); Calcium 8.1 mg/dL (8.4-10.2); Carbon Dioxide 27 mmol/L (22-30); Chloride 105 mmol/L (98-107); Estimated CRCL calculation 134 ml/min; Estimated Glomerular Filt Rate > 60; Glucose 134 mg/dL (65-110); Potassium 3.3 mmol/L (3.4-5.0); Sodium 137 mmol/L (137-145)
--- NOTE | 2024-10-26 10:23 | PM.DS ---
DS: Admitting Diagnosis Discharge Date 10/26/2024 Admitting Diagnosis Acute appendicitis DS: Discharge Diagnosis Discharge Diagnosis (1) Acute appendicitis: Qualifiers: Acute appendicitis type: with generalized peritonitis Appendicitis abscess presence: without abscess Appendicitis gangrene presence: without gangrene Appendicitis perforation presence: without perforation Qualified Code(s): K35.200 - Acute appendicitis with generalized peritonitis, without perforation or abscess Code(s): K35.80 - Unspecified acute appendicitis Status: Acute DS: Summary Hospital Course Reason for hospitalization: This is a 44-year-old man who presented to the ED with complaints of right lower quadrant abdominal pain x2 days. Workup in the ED showed mild leukocytosis and CT evidence of acute retrocecal nonruptured appendicitis. He was admitted in this setting. Hospital Course: He was started on broad-spectrum IV antibiotics and taken to the OR. He underwent laparoscopic appendectomy on 10/25/2024. His diet was advanced postoperatively. He did have a low-grade fever overnight following surgery. Labs rechecked postop day 1 and white blood cell count was down from 12k down to 11k. Of note, his hemoglobin did drop from 15.4 down to 11.3. He appeared slightly dehydrated when he presented and some of thi drop could be dilutional. He remains on continuous maintenance fluids. He is hemodynamically stable and his abdominal exam is benign. No signs of active bleeding. Also on labs, his potassium was slightly low, but replaced with KCL. He was afebrile this morning and had no specific complaints. He has some mild incisional soreness. Low grade temp likely related to atelectasis. No findings of a perforation during surgery. He has advanced his diet and is tolerating solid foods well. No nausea or vomiting. He is already passing flatus. After discussing with Dr. Kennedy, he is stable for discharge today. Status at Discharge Functional status at discharge: independent ambulation Overall status at discharge: patient is progressing back to baseline Time Spent with Patient Time attestation: Total time spent providing and/or coordinating discharge services: Exam Const: General: comfortable and no acute distress Orientation/consciousness: patient oriented x3 Cardio: Rate: regular rate Rhythm: regular rhythm GI: Inspection: non-distended and incision (incisions dry and intact) GI Palp: Yes Soft to palpation, No Firmness to palpation present (GI), Yes Tenderness to palpation present (GI) (Very mild right lower quadrant tenderness), No Guarding due to palpation present (GI) and No Rebound tenderness present Auscultation: normal bowel sounds Neuro: General: moves all extremities and no focal motor deficits Extrem: General: no calf tenderness and no edema Psych: Mental Status: mental status grossly normal Insight: Good insight present (Psych) DS: Data Data Completed and Pending Pending studies at discharge: Pending at discharge 10/25/24 15:37 Surgical [PTH] Routine Labs on day of discharge: Labs from last 24 hours 10/26/24 09:17 WBC 11.1 H RBC 4.00 L Hgb 11.3 L D Hct 36.2 L MCV 90.5 MCH 28.3 MCHC 31.2 L RDW 13.2 Plt Count 193 MPV 10.2 Immature Gran % (Auto) 0.3 Neut % (Auto) 74.8 H Lymph % (Auto) 18.0 L [place] % (Auto) 6.2 Eos % (Auto) 0.5 Baso % (Auto) 0.2 Lymph # (Auto) 1.99 [place] # (Auto) 0.7 H Eos # (Auto) 0.1 Baso # (Auto) 0.0 Abs Immat Gran (auto) 0.03 Absolute Neuts (auto) 8.3 H Absolute Nucleated RBC 0.000 Nucleated RBC % 0.0 Sodium 137 Potassium 3.3 L Chloride 105 Carbon Dioxide 27 Anion Gap 5 BUN 13 Creatinine 0.66 L Estim Creat Clear Calc 134 Estimated GFR > 60 Glucose 134 H Calcium 8.1 L Procedures/Treatments: Procedures Operation Date: 10/25/24 15:00 Actual Procedure Side Surgeon p Laparoscopic Appendectomy Not Applicable Cinda Kennedy MD Imaging Radiologist's impression: ITS Impressions Abdomen/Pelvis CT 10/24/24 23:53 IMPRESSION: Acute retrocecal nonruptured appendicitis, as detailed above Discharge Plan Discharge Attending physician on discharge: Cinda Kennedy Discharging Clinician: Cinda Kennedy Patient Disposition: Home Activity: as tolerated Diet: as tolerated Wound Care Instructions: incision open to air Discharge Instructions: DISCHARGE INSTRUCTION SHEET FOR HERNIA, GALLBLADDER AND APPENDIX SURGERIES DR. KENNEDY 1. May shower in 24 hours, no soaking in bath x 2weeks. 2. Call office for: Wound increasingly painful or bleeding Vomiting Fever of greater than 101 degrees 3. If no bowel movement for three days, take 1 oz. (30 ml) Milk of Magnesia or MiraLax 17g 1 to 2 times daily. 4. No heavy lifting > 10-15 pounds x 2 weeks for laparoscopic cholecystectomy or appendectomy. 5. No driving for 3 days or while taking narcotic pain medications. 6. Ice to surgical site for 48 hours (30 min on, then 30 min off). 7. Up walking 10-30 minutes three times per day. 8. Resume previous home medications. 9. Call to schedule a follow-up with Dr. Kennedy in our office in 2 weeks. ([phone]) 10. Oral pain medications prescription to be sent to pharmacy. Take Tylenol 500mg every 6 hours and Ibuprofen 600mg every 6 hours for the first 2 days, then as needed. 11. NUTRITION: Start out by drinking fluids and increase your diet as tolerated. If you experience nausea, try dry toast, crackers, and 7-UP. If nausea or vomiting persists, contact your surgeon?s office. Patient Instructions: Laparoscopic Appendectomy (DC) Patient Language: Hebrew Stand Alone Forms: General Discharge Information Follow-up/Referrals: Cinda Kennedy MD [Physician] - 2 Weeks Discharge Medications: New hydrocodone-acetaminophen 5-325 mg tablet 1 tablet PO Q6H PRN (Reason: pain) Qty: 20 0RF docusate sodium [Colace] 100 mg capsule 100 mg PO BID Qty: 20 0RF Continued sertraline 100 mg tablet 150 mg PO DAILY lamotrigine 100 mg tablet 100 mg PO DAILY rosuvastatin 10 mg tablet 10 mg PO DAILY bupropion HCl 150 mg tablet extended release 24 hr 150 mg PO DAILY hydroxyzine HCl 25 mg tablet 25 mg PO Q8H PRN (Reason: anxiety) melatonin 10 mg tablet 10 mg PO HS PRN (Reason: sleep) Date of admission: 10/25/24 01:11 Primary Care Provider: Afia,Yamel Cobb Admitting Provider: Cinda Kennedy Attending physician on admission: Cinda Kennedy Condition: Stable Quality VTE Prophylaxis VTE prophylaxis: mechanical ordered If No VTE Prophylaxis Answer both mechanical and pharmacologic: Reason no pharmacologic proph: low risk/not indicated
[2024-10-26] MEDS: POTASSIUM CHLORIDE 20 MEQ ER TABLET PO (11:17)
== END 2024-10-26 11:32 | disposition home or self-care (01) ==
LOC: ANHED 10-25 00:16 → ANH2MED 10-25 01:56
PROVIDERS: Emergency Medicine; Nurse Practitioner Family; Admitting Provider Surgery; Emergency Provider Physician Assistant; PCP Nurse Practitioner; Visit Provider Surgery
PROC: 0DTJ4ZZ Resection of Appendix, Percutaneous Endoscopic Approach (ICD-10-PCS; CPT 44970; principal; 2024-10-25 15:00)
DX: K35.32 Acute appendicitis with perforation, localized peritonitis, and gangrene, without abscess (principal); K38.8 Other specified diseases of appendix; E87.6 Hypokalemia; K59.00 Constipation, unspecified; F32.9 Major depressive disorder, single episode, unspecified; E78.5 Hyperlipidemia, unspecified; F41.9 Anxiety disorder, unspecified; Z79.899 Other long term (current) drug therapy; Z87.891 Personal history of nicotine dependence; Z88.0 Allergy status to penicillin
CPT/HCPCS: 44970; 36415; 74176; 80048; 80053; 81001; 83690; 85025; 88304; 96361; 96365; 96367; 96374; 96375; 99285; A9270; G0378; J0696; J1100; J1836; J1885; J2250; J2270; J2405; J2704; J7030; J7120